=== PATIENT | female | born 1985 | race Caucasian/White ===

== ENCOUNTER 2017-04-01 01:22 | Emergency (ER) | payer MEDICAID ==
[~2017-04-01 01:22] MED LIST: DEMEROL50 MG PO; MOTRIN600 MG PO; PRENATAL COMPLE1 TAB PO
== END 2017-04-01 01:58 | disposition home or self-care (01) ==
LOC: D.ER 01:22
DX: S46.811A Strain of other muscles, fascia and tendons at shoulder and upper arm level, right arm, initial encounter (principal); X58.XXXA Exposure to other specified factors, initial encounter; Y93.89 Activity, other specified; Y92.89 Other specified places as the place of occurrence of the external cause

== ENCOUNTER 2018-01-12 18:04 | Emergency (ER) | payer MEDICAID | END 2018-01-12 23:30 | disposition home or self-care (01) | LOC: D.ER 18:04 | DX: S01.91XA Laceration without foreign body of unspecified part of head, initial encounter (principal); Y04.2XXA Assault by strike against or bumped into by another person, initial encounter; Y93.89 Activity, other specified; Y92.019 Unspecified place in single-family (private) house as the place of occurrence of the external cause; F17.200 Nicotine dependence, unspecified, uncomplicated ==

== ENCOUNTER 2018-01-23 02:55 | Emergency (ER) | payer MEDICAID | END 2018-01-23 03:19 | disposition home or self-care (01) | LOC: D.ER 02:55 | DX: S01.01XD Laceration without foreign body of scalp, subsequent encounter (principal); X58.XXXD Exposure to other specified factors, subsequent encounter; Z48.02 Encounter for removal of sutures ==